=== PATIENT | male | born 1945 | race Caucasian/White ===

== ENCOUNTER 2024-05-27 06:17 | Day surgery (SDC) | payer MEDICARE, OTHER, SELFPAY ==
--- NOTE | 2024-05-27 05:33 | PM.PREOP ---
Pre-operative Note Interval Note History & Physical reviewed/Exam performed by Physician: Yes Changes to H&P: No
--- NOTE | 2024-05-27 05:35 | P.HP_ITS ---
History of Present Illness History of Present Illness Chief complaint: R hammertoe 2 correction Narrative: 79 year old male would like to proceed with correction of his hammertoe to prevent recurrent ulcerations. Patient has loss of protective sensations due to diabetes and neuropathy. Patient denies n/v/f/c/sob/cp. [facility] Medical History (Updated 05/22/24 @ 15:26 by Cherelle Salas, RN) History of MRSA infection Osteoarthritis [place] (hard of hearing) GERD (gastroesophageal reflux disease) Diabetic neuropathic cachexia Diabetic neuropathy Colon cancer BPH (benign prostatic hyperplasia) Cochlear implant in place Asthma HTN (hypertension) Diabetes Surgical History (Updated 05/22/24 @ 15:26 by Cherelle Salas, RN) History of colectomy History of prostatectomy History of esophagogastroduodenoscopy (EGD) History of colonoscopy Social History household members: spouse Smoking Status: Never smoker alcohol intake: never Meds Home Medications and Allergies Home Medications Medication Instructions Recorded Confirmed Type amlodipine 5 mg tablet 5 mg PO BID 05/23/24 05/23/24 History aspirin 81 mg capsule 81 mg PO DAILY 05/23/24 05/23/24 History celecoxib 200 mg capsule 200 mg PO DAILY 05/23/24 05/23/24 History cyanocobalamin (vitamin B-12) 1,000 mcg PO DAILY 05/23/24 05/23/24 History 1,000 mcg tablet ferrous sulfate 324 mg (65 mg 324 mg PO DAILY 05/23/24 05/23/24 History iron) tablet,delayed release fluticasone 100 mcg-salmeterol 50 1 inh inhalation BID 05/23/24 05/23/24 History mcg/dose blistr powdr for inhalation (Advair Diskus) gabapentin 300 mg capsule 600 mg PO QPM 05/23/24 05/23/24 History insulin glargine-yfgn 100 unit/mL 8 unit SUBCUT QPM 05/23/24 05/23/24 History (3 mL) subcutaneous pen (Semglee (insulin glargine-yfgn) Pen) losartan 50 mg tablet 50 mg PO DAILY 05/23/24 05/23/24 History metformin 500 mg tablet 750 mg PO BID 05/23/24 05/23/24 History omeprazole 20 mg capsule,delayed 20 mg PO DAILY 05/23/24 05/23/24 History release Allergies Allergy/AdvReac Type Severity Reaction Status Date / Time lisinopril Allergy Difficulty Verified 05/23/24 07:17 Breathing Penicillins Allergy Difficulty Verified 05/23/24 07:17 Breathing Exam Extrem Other: Right foot: Semi-rigid hammertoes 1-5 with pre-ulcer at tuft of toe 2. Assessment & Plan Assessment & Plan narrative: 1. Right foot second digit hammertoe Patient seen and evaluated. Surgical plan: right foot second digit hammertoe correction. Risks and benefits of the procedure discussed with all questions answered to patient's satisfaction. Reviewed potential complications that may include but not limited to the following: DVT, failure to resolve all symptoms, infection, nerve injury, bleeding, recurrence, or wound. Reviewed surgical technique and general aftercare protocols. All questions answered to patient's satisfaction with no guarantees made. Patient verbalized understanding and agreed with surgical plan. RTC for post-op. Time-Based Coding :: [TOTAL MINUTES] spent with patient and on the chart (including review of chart, obtaining history, exam, reviewing outside data, placing orders, documenting exam and treatment plan, and counseling patient) on [DATE].
[2024-05-27 06:53] VITALS: BMI 21.9
[2024-05-27 07:01] VITALS: BP 154/80; PULSE 75; RESP 17; TEMP 36.7; O2SAT 98
[2024-05-27] MEDS: ACETAMINOPHEN 325 MG TABLET 975 MG PO (07:16)
[2024-05-27] MEDS: LACTATED RINGERS 1,000 ML 42 ML IV (07:23)
[2024-05-27] MEDS: CLINDAMYCIN 900 MG/50 ML PIGGYBACK 50 MG IV (07:44)
--- NOTE | 2024-05-27 08:10 | SUR.OPER ---
Supine on padded OR bed, head on pillow, arms secured on padded arm boards at <90 degrees abduction, legs uncrossed, safety belt at thigh, tape over blanket over lower legs.
[2024-05-27] MEDS: LIDOCAINE 1% 20 ML INJ (08:15)
[2024-05-27 09:27] VITALS: BP 129/73; PULSE 72; RESP 10; TEMP 36.6; O2SAT 95
[2024-05-27 09:32] VITALS: BP 135/74; PULSE 69; RESP 16; O2SAT 98
[2024-05-27 09:37] VITALS: BP 142/69; PULSE 67; RESP 13; O2SAT 97
[2024-05-27 09:44] VITALS: BP 144/76; PULSE 70; RESP 15; TEMP 36.4; O2SAT 95
--- NOTE | 2024-05-30 21:27 | P.OP_ITS ---
Operative Date/Time/Diagnoses Date of procedure: 05/27/24 Pre-op diagnosis: Right second hammertoe Post-op diagnosis: same Procedure & Clinicians Procedure: 1. Right second hammertoe correction Same procedure as scheduled: Yes Indications: Rigid second toe flexion deformity with recurrent ulceration. Surgeon: Yonny Tierney Click Yes if Unassisted: Yes Anesthesia Type: General Operative Notes Findings: Consistent with diagnosis. Closure Type: primary Specimen(s): none sent Estimated Blood Loss (mL): 5 Tourniquet time (min): 54 Procedure in detail: Patient was identified and transferred onto operating table from [facility] in supine position. General anesthesia was administered, followed by local injection with 1% lidocaine plain. A tourniquet was applied to right ankle over well-padded surface. Right foot was then prepped and draped in the usual sterile fashion, followed by official timeout with surgical team all in agreement. The right foot was then exsanguinated, and the tourinuqet was inflated to 225 mmHg. Attention was directed to right second toe. An elliptical incisions was made over each interphalangeal joint using # 15 scalpel, and dissection was carried out in layers from skin down to the joint. Care was taken to protect the extensor tendon and neurovasular structures. A sagittal saw was used to resect cartilage down to subchondral bone on all respective surfaces. Following manufacture instructions for the implant as well as using K-wire and flu oroscopy, the right second toe was held in rectus position. Decision was made to leave the K-wire for enhanced stability, and a cap was placed over the cut wire at the tip of the toe. Procedure sites were irrigated with copious saline, then they were closed from deep to superficial using 3-0 vicryl, 4-0 nylon, and steri-strips. Tourniquet was released, and adequate capillary fill time was noted to all toes. Right foot was then cleaned and dried. Iodine soaked Adaptic was applied to incision lines, and they were covered with bulky sterile dressings. Patient tolerated procedure without complication and was transferred to PACU with vital signs stable. Complications: none Post-operative Condition: stable Disposition: same day surgery Plan for aftercare: NWB, elevate above heart, and ice around ankle to surgical limb. Keep dressing clean, dry, and intact until follow-up as scheduled.
== END 2024-05-27 10:25 | disposition home or self-care (01) ==
PROVIDERS: PCP Family Medicine; Referring Provider Podiatrist Foot & Ankle Surgery; Visit Provider Podiatrist Foot & Ankle Surgery
PROC: (CPT 28285; principal; 2024-05-27 07:45)
DX: M20.41 Other hammer toe(s) (acquired), right foot (principal); E11.40 Type 2 diabetes mellitus with diabetic neuropathy, unspecified; Z79.4 Long term (current) use of insulin; Z79.84 Long term (current) use of oral hypoglycemic drugs
CPT/HCPCS: 28285; 82962; J1100; J2405; J2704; J3010